=== PATIENT | male | born 1950 | race African-American/Black ===

== ENCOUNTER 2022-01-01 08:13 | Emergency (ER) | payer MEDICARE, MEDICAID ==
[~2022-01-01] VITALS: Ht 175.3 cm; Wt 78.0 kg
[2022-01-01] MEDS ORDERED: ALBUTEROL (0.083%) 2.5MG/3ML NEB HHN STA (08:22)
[2022-01-01] MEDS ORDERED: METHYLPREDNISOLONE SOD SUCC 125 MG/2 ML VIAL IV STA (08:22)
[2022-01-01] MEDS ORDERED: IPRATROPIUM BROMIDE (0.02%) 0.5MG/2.5ML NEB HHN STA (08:22)
[2022-01-01] MEDS ORDERED: NITROGLYCERIN 0.1MG/HR PATCH TOP ONE (08:30)
[2022-01-01 08:49] LABS: BASOPHILS % 1.4 % (0.0-2.0); EOSINOPHILS % 1.3 % (0.0-5.0); HEMATOCRIT. 39.7 % (42.0-52.0); HEMOGLOBIN. 12.8 g/dL (14.0-18.0); LYMPHOCYTES % 37.4 % (20.0-50.0); MEAN CORPUSCULAR HEMOGLOBIN 32.3 pg (28.0-32.0); MEAN CORPUSCULAR VOLUME 100.1 fL (80.0-94.0); MEAN PLATELET VOLUME 10.2 fl (7.4-10.4); MONOCYTES % 8.1 % (2.0-8.0); NEUTROPHILS % 51.8 % (40.0-76.0); PLATELET 209 x1000/uL (130-400); RED BLOOD CELL COUNT 3.97 mill/uL (4.7-6.1); RED CELL DISTRIBUTION WIDTH 13.3 % (11.6-14.6)
[2022-01-01 09:01] LABS: BG BASE EXCESS -3.2 mmol/L (-2.0-2.0); BG DEOXYHEMOGLOBIN 0.5 % (0.0-5.0); BG METHEMOGLOBIN 0.3 % (0.0-1.5); BG OXYGEN SATURATION 99.5 % (92.0-98.5); BG OXYHEMOGLOBIN 97.2 % (94.0-97.0); BG PCO2 59.4 mmHg (35.0-45.0); BG PH 7.242 (7.350-7.450); BG SAMPLE SITE RIGHT RADIAL; BG TOTAL HEMOGLOBIN 12.9 g/dL (12.0-18.0); BG VENT MODE MASK - BIPAP
[2022-01-01 09:05] LABS: CHLORIDE 107 mEq/L (98-107)
[2022-01-01] MEDS ORDERED: CEFTRIAXONE 1 G PREMIX 50 ML IV ONE (09:45)
[2022-01-01] MEDS ORDERED: ASPIRIN 81MG TABLET PO ONE (09:45)
[2022-01-01] MEDS ORDERED: FUROSEMIDE 40MG/4ML VIAL IV ONE (09:45)
[2022-01-01] MEDS ORDERED: NITROGLYCERIN 50MG PREMIX 250 ML IV ONE (09:45)
[2022-01-01] MEDS ORDERED: NITROGLYCERIN 50MG PREMIX 250 ML IV NR (10:00)
[2022-01-01] MEDS ORDERED: CLONIDINE 0.2MG TABLET PO NR (16:15)
[2022-01-01 17:51] VITALS: BP 167/62
[2022-01-01] MEDS ORDERED: ACETAMINOPHEN 325MG TABLET PO PRN (21:15)
[2022-01-01] MEDS ORDERED: MAGNESIUM/ALUMINUM HYDROXIDE/SIMETHICONE 30ML UDC PO PRN (21:15)
[2022-01-01] MEDS ORDERED: ONDANSETRON HCL 4MG/2ML INJ IV PRN (21:15)
[2022-01-01] MEDS ORDERED: CLONIDINE 0.1MG TABLET PO PRN (21:15)
[2022-01-01] MEDS ORDERED: AMLODIPINE 5MG TABLET PO NR (21:15)
[2022-01-01] MEDS ORDERED: HYDROCODONE/ACETAMINOPHEN 5/325MG TABLET PO PRN (21:15)
[2022-01-01] MEDS ORDERED: ENOXAPARIN 30MG/0.3ML SYR SUBCUT SCH (22:00)
[2022-01-01 22:14] LABS: *AMPHETAMINES SCREEN URINE NEGATIVE (NEGATIVE); *BARBITURATES SCREEN URINE NEGATIVE (NEGATIVE); *BENZODIAZEPINES SCREEN URINE NEGATIVE (NEGATIVE); *COCAINE SCREEN URINE PRESUMTIVE POSITIVE (NEGATIVE); CANNABINOID URINE SCREEN NEGATIVE (NEGATIVE); METHADONE URINE SCREEN NEGATIVE (NEGATIVE); OPIATES URINE SCREEN NEGATIVE (NEGATIVE); PHENCYCLIDINE URINE SCREEN NEGATIVE (NEGATIVE)
[2022-01-02] MEDS ORDERED: OMEPRAZOLE 20MG CAPSULE EXTENDED RELEASE PO SCH (07:50)
[2022-01-02] MEDS ORDERED: FUROSEMIDE 40MG/4ML VIAL IVP SCH (09:00)
[2022-01-02] MEDS ORDERED: AMLODIPINE 5MG TABLET PO SCH (09:00)
== END 2022-01-01 21:45 | disposition left against medical advice (07) ==
LOC: ER 08:27 → EDBEDREQSVC 18:39 → ENRESERV 19:58 → ER 21:45 → CANBEDREQ 23:19
DX: I16.1 Hypertensive emergency (principal); I13.0 Hypertensive heart and chronic kidney disease with heart failure and stage 1 through stage 4 chronic kidney disease, or unspecified chronic kidney disease; R06.03 Acute respiratory distress; I50.43 Acute on chronic combined systolic (congestive) and diastolic (congestive) heart failure; R00.0 Tachycardia, unspecified; N18.9 Chronic kidney disease, unspecified; Z20.822 Contact with and (suspected) exposure to COVID-19; J44.9 Chronic obstructive pulmonary disease, unspecified; D64.9 Anemia, unspecified; M41.84 Other forms of scoliosis, thoracic region
CPT/HCPCS: 36415; 36600; 71045; 80053; 80305; 82375; 82805; 83880; 84484; 85025; 87426; 93005; 94640; 94660; 96365; 96375; 99285; C9803; J0696; J1940; J2930; J3490

== ENCOUNTER 2022-01-13 00:10 | Inpatient (IN) | payer MEDICARE, MEDICAID ==
[~2022-01-13] VITALS: Ht 170.2 cm; Wt 54.1 kg
[2022-01-13] MEDS ORDERED: IPRATROPIUM BROMIDE (0.02%) 0.5MG/2.5ML NEB HHN STA (00:21)
[2022-01-13] MEDS ORDERED: METHYLPREDNISOLONE SOD SUCC 125 MG/2 ML VIAL IV STA (00:21)
[2022-01-13] MEDS ORDERED: ALBUTEROL (0.083%) 2.5MG/3ML NEB HHN STA (00:21)
[2022-01-13] MEDS ORDERED: MAGNESIUM 2 G PREMIX 50 ML IV ONE (00:30)
[2022-01-13 00:50] LABS: BG BASE EXCESS -5.9 mmol/L (-2.0-2.0); BG CARBOXYHEMOGLOBIN 1.3 % (0.5-1.5); BG DEOXYHEMOGLOBIN 2.6 % (0.0-5.0); BG FRACTION INSPIRED OXYGEN 60; BG HCO3 ACT 23.3 mmol/L (22.0-26.0); BG METHEMOGLOBIN 0.4 % (0.0-1.5); BG OXYGEN SATURATION 97.4 % (92.0-98.5); BG OXYHEMOGLOBIN 95.7 % (94.0-97.0); BG PCO2 61.8 mmHg (35.0-45.0); BG PH 7.195 (7.350-7.450); BG SAMPLE SITE RIGHT RADIAL; BG TOTAL HEMOGLOBIN 15.6 g/dL (12.0-18.0); BG VENT MODE MASK - BIPAP
[2022-01-13 02:39] LABS: BASOPHILS % 1.3 % (0.0-2.0); EOSINOPHILS % 0.9 % (0.0-5.0); HEMATOCRIT. 38.8 % (42.0-52.0); HEMOGLOBIN. 12.6 g/dL (14.0-18.0); LYMPHOCYTES % 22.9 % (20.0-50.0); MEAN CORPUSCULAR HEMOGLOBIN 32.5 pg (28.0-32.0); MEAN CORPUSCULAR VOLUME 99.6 fL (80.0-94.0); MEAN PLATELET VOLUME 10.3 fl (7.4-10.4); MONOCYTES % 5.1 % (2.0-8.0); NEUTROPHILS % 69.8 % (40.0-76.0); PLATELET 220 x1000/uL (130-400); RED BLOOD CELL COUNT 3.89 mill/uL (4.7-6.1); RED CELL DISTRIBUTION WIDTH 13.5 % (11.6-14.6)
[2022-01-13 02:44] LABS: CHLORIDE 109 mEq/L (98-107)
[2022-01-13] MEDS ORDERED: IPRATROPIUM/ALBUTEROL 0.5-3(2.5)MG/3ML NEB HHN PRN ×2 (06:30→09:45)
[2022-01-13] MEDS: BUDESONIDE 0.5MG/2ML NEB HHN SCH ×2 (07:36→20:07)
[2022-01-13] MEDS: IPRATROPIUM/ALBUTEROL 0.5-3(2.5)MG/3ML NEB HHN SCH ×4 (07:36→20:07)
[2022-01-13 09:11] LABS: BG BASE EXCESS -3.5 mmol/L (-2.0-2.0); BG CARBOXYHEMOGLOBIN 1.4 % (0.5-1.5); BG DEOXYHEMOGLOBIN 0.7 % (0.0-5.0); BG FRACTION INSPIRED OXYGEN 40; BG METHEMOGLOBIN 0.3 % (0.0-1.5); BG OXYGEN SATURATION 99.3 % (92.0-98.5); BG OXYHEMOGLOBIN 97.6 % (94.0-97.0); BG PCO2 47.4 mmHg (35.0-45.0); BG PH 7.304 (7.350-7.450); BG PO2 137.1 mmHg (75.0-100.0); BG SAMPLE SITE RIGHT BRACHIAL; BG TOTAL HEMOGLOBIN 12.4 g/dL (12.0-18.0); BG TOTAL RESPIRATORY RATE 32 b/min; BG VENT MODE MASK - BIPAP
[2022-01-13] MEDS ORDERED: MAGNESIUM/ALUMINUM HYDROXIDE/SIMETHICONE 30ML UDC PO PRN (09:45)
[2022-01-13] MEDS ORDERED: TRAMADOL 50MG TABLET PO PRN (09:45)
[2022-01-13] MEDS ORDERED: DOCUSATE SODIUM 100MG CAPSULE PO PRN (09:45)
[2022-01-13] MEDS ORDERED: ENOXAPARIN 40MG/0.4ML SYR SUBCUT SCH (09:45)
[2022-01-13] MEDS ORDERED: ONDANSETRON HCL 4MG/2ML INJ IV PRN (09:45)
[2022-01-13] MEDS ORDERED: ACETAMINOPHEN 325MG TABLET PO PRN (09:45)
[2022-01-13] MEDS ORDERED: GUAIFENESIN 200MG/10ML SUGAR FREE UDC PO PRN (09:45)
[2022-01-13] MEDS ORDERED: NALOXONE HCL 0.4MG/ML VIAL IV PRN (10:00)
[2022-01-13] MEDS: METHYLPREDNISOLONE SOD SUCC 125 MG/2 ML VIAL IV SCH ×3 (10:28→21:36)
[2022-01-13] MEDS ORDERED: PIPERACILLIN/TAZOBACTAM 3.375 G in DEXTROSE 5% WATER 50 ML IV SCH (10:30)
[2022-01-13] MEDS: AMLODIPINE 10MG TABLET PO SCH (10:31)
[2022-01-13] MEDS: ENOXAPARIN 30MG/0.3ML SYR SUBCUT SCH (10:32)
[2022-01-13 13:05] VITALS: BP 149/100
[2022-01-13] MEDS ORDERED: HYDRALAZINE 20MG/ML VIAL IV PRN (13:45)
[2022-01-13] MEDS ORDERED: HYDRALAZINE HCL 25MG TABLET PO SCH (14:00)
[2022-01-13] MEDS: TAMSULOSIN HCL 0.4MG SR CAPSULE PO SCH (15:17)
[2022-01-13] MEDS: ISOSORBIDE DINITRATE 20MG TABLET PO SCH ×2 (15:17→17:29)
[2022-01-13] MEDS: HYDRALAZINE HCL 100MG TABLET PO SCH ×2 (15:17→21:39)
[2022-01-13] MEDS: PIPERACILLIN/TAZOBACTAM 3.375 G in DEXTROSE 5% WATER 50 ML IV SCH ×2 (15:18→21:37)
[2022-01-13 16:00] VITALS: BP 167/61
[2022-01-13 16:13] VITALS: BP 141/100
[2022-01-13] MEDS ORDERED: HYDR-4009 MT (16:40)
[2022-01-13] MEDS ORDERED: LISI20TA31 MT (16:40)
[2022-01-13 18:00] VITALS: BP 142/67
[2022-01-13 20:00] VITALS: BP 137/78
[2022-01-13 22:00] VITALS: BP 153/79
[2022-01-14] VITALS (12 sets, daily range): BP systolic 119–151; BP diastolic 56–80
[2022-01-14] MEDS: IPRATROPIUM/ALBUTEROL 0.5-3(2.5)MG/3ML NEB HHN SCH ×6 (00:50→20:12)
[2022-01-14] MEDS: METHYLPREDNISOLONE SOD SUCC 125 MG/2 ML VIAL IV SCH ×2 (05:17→11:06)
[2022-01-14] MEDS: PIPERACILLIN/TAZOBACTAM 3.375 G in DEXTROSE 5% WATER 50 ML IV SCH ×3 (05:18→21:37)
[2022-01-14] MEDS: HYDRALAZINE HCL 100MG TABLET PO SCH ×3 (05:18→21:49)
[2022-01-14 06:09] LABS: HEMATOCRIT. 31.6 % (42.0-52.0); HEMOGLOBIN. 10.5 g/dL (14.0-18.0); MEAN CORPUSCULAR HEMOGLOBIN 32.3 pg (28.0-32.0); MEAN CORPUSCULAR VOLUME 96.9 fL (80.0-94.0); MEAN PLATELET VOLUME 9.7 fl (7.4-10.4); PLATELET 181 x1000/uL (130-400); RED BLOOD CELL COUNT 3.26 mill/uL (4.7-6.1); RED CELL DISTRIBUTION WIDTH 12.9 % (11.6-14.6)
[2022-01-14 08:37] LABS: BG BASE EXCESS -4.2 mmol/L (-2.0-2.0); BG CARBOXYHEMOGLOBIN 0.3 % (0.5-1.5); BG DEOXYHEMOGLOBIN 6.2 % (0.0-5.0); BG FRACTION INSPIRED OXYGEN 21; BG HCO3 ACT 20.2 mmol/L (22.0-26.0); BG METHEMOGLOBIN 0.1 % (0.0-1.5); BG OXYGEN SATURATION 93.8 % (92.0-98.5); BG OXYHEMOGLOBIN 93.4 % (94.0-97.0); BG PCO2 34.8 mmHg (35.0-45.0); BG PH 7.382 (7.350-7.450); BG PO2 67.8 mmHg (75.0-100.0); BG SAMPLE SITE RIGHT RADIAL; BG TOTAL HEMOGLOBIN 12.1 g/dL (12.0-18.0); BG VENT MODE ROOM AIR
[2022-01-14] MEDS: BUDESONIDE 0.5MG/2ML NEB HHN SCH ×2 (09:15→20:12)
[2022-01-14 10:25] LABS: CHLORIDE 108 mEq/L (98-107); HDL CHOLESTEROL 91 mg/dL (40-59); LDL CHOLESTEROL 80 mg/dL (5-100)
[2022-01-14] MEDS: TAMSULOSIN HCL 0.4MG SR CAPSULE PO SCH (10:50)
[2022-01-14] MEDS: GUAIFENESIN 600MG ER TABLET PO SCH ×2 (10:51→21:37)
[2022-01-14] MEDS: AMLODIPINE 10MG TABLET PO SCH (10:51)
[2022-01-14] MEDS: ENOXAPARIN 30MG/0.3ML SYR SUBCUT SCH (10:52)
[2022-01-14] MEDS: ISOSORBIDE DINITRATE 20MG TABLET PO SCH ×3 (11:06→18:45)
[2022-01-14] MEDS ORDERED: FUROSEMIDE 40MG/4ML VIAL IVP NR (12:00)
[2022-01-14 13:30] LABS: PLATELET ESTIMATE NORMAL
[2022-01-14] MEDS: METHYLPREDNISOLONE SOD SUCC 40 MG/ML VIAL IV SCH (18:46)
[2022-01-15] VITALS (7 sets, daily range): BP systolic 122–155; BP diastolic 48–82
[2022-01-15] MEDS: IPRATROPIUM/ALBUTEROL 0.5-3(2.5)MG/3ML NEB HHN SCH ×3 (00:56→08:30)
[2022-01-15] MEDS: METHYLPREDNISOLONE SOD SUCC 40 MG/ML VIAL IV SCH ×2 (01:12→09:25)
[2022-01-15] MEDS: PIPERACILLIN/TAZOBACTAM 3.375 G in DEXTROSE 5% WATER 50 ML IV SCH (05:59)
[2022-01-15] MEDS: HYDRALAZINE HCL 100MG TABLET PO SCH (05:59)
[2022-01-15] MEDS: BUDESONIDE 0.5MG/2ML NEB HHN SCH (08:30)
[2022-01-15] MEDS: ISOSORBIDE DINITRATE 20MG TABLET PO SCH (08:48)
[2022-01-15] MEDS: AMLODIPINE 10MG TABLET PO SCH (08:48)
[2022-01-15] MEDS: TAMSULOSIN HCL 0.4MG SR CAPSULE PO SCH (08:49)
[2022-01-15] MEDS: GUAIFENESIN 600MG ER TABLET PO SCH (08:49)
[2022-01-15] MEDS: ENOXAPARIN 30MG/0.3ML SYR SUBCUT SCH (09:26)
== END 2022-01-15 20:10 | disposition home health service (06) | DRG 189 ==
LOC: ER 00:10 → EDBEDREQ 03:27 → MICUSO 04:28 → 5EST 12:21
PROVIDERS: ADMIT Hospitalist; ATTEND Hospitalist
PROC: 5A09357 Assistance with Respiratory Ventilation, Less than 24 Consecutive Hours, Continuous Positive Airway Pressure (ICD-10-PCS; principal; 2022-01-13)
DX: J96.01 Acute respiratory failure with hypoxia (principal); I50.31 Acute diastolic (congestive) heart failure; J18.9 Pneumonia, unspecified organism; I21.A1 Myocardial infarction type 2; N17.9 Acute kidney failure, unspecified; E44.0 Moderate protein-calorie malnutrition; E87.29 Other acidosis; J68.0 Bronchitis and pneumonitis due to chemicals, gases, fumes and vapors; Z68.1 Body mass index [BMI] 19.9 or less, adult; I11.0 Hypertensive heart disease with heart failure; J96.02 Acute respiratory failure with hypercapnia; Z20.822 Contact with and (suspected) exposure to COVID-19; T40.5X1A Poisoning by cocaine, accidental (unintentional), initial encounter; I16.0 Hypertensive urgency; E87.5 Hyperkalemia; R77.8 Other specified abnormalities of plasma proteins; F17.210 Nicotine dependence, cigarettes, uncomplicated; F14.10 Cocaine abuse, uncomplicated; M41.9 Scoliosis, unspecified; Y92.89 Other specified places as the place of occurrence of the external cause
CPT/HCPCS: 36415; 36600; 71045; 80053; 80061; 82375; 82805; 83880; 84484; 85025; 87426; 87804; 93005; 93306; 94640; 94660; 99291; J1650; J1940; J2543; J2920; J2930; J3475; J7060; J7626

== ENCOUNTER 2022-05-18 07:52 | Inpatient (IN) | payer MEDICARE, MEDICAID ==
[~2022-05-18] VITALS: Ht 170.2 cm; Wt 53.5 kg
[~2022-05-18 07:52] MED LIST: HYDR-4009 MT; LISI20TA31 MT
[2022-05-18] MEDS ORDERED: IPRATROPIUM/ALBUTEROL 0.5-3(2.5)MG/3ML NEB HHN ONE (08:15)
[2022-05-18] MEDS ORDERED: ALBUTEROL (0.083%) 2.5MG/3ML NEB HHN STA (08:21)
[2022-05-18] MEDS ORDERED: MAGNESIUM 2 G PREMIX 50 ML IV STA (08:21)
[2022-05-18] MEDS ORDERED: IPRATROPIUM BROMIDE (0.02%) 0.5MG/2.5ML NEB HHN STA (08:21)
[2022-05-18 08:45] LABS: BG BASE EXCESS -7.2 mmol/L (-2.0-2.0); BG CARBOXYHEMOGLOBIN 0.3 % (0.5-1.5); BG DEOXYHEMOGLOBIN 1.1 % (0.0-5.0); BG FRACTION INSPIRED OXYGEN 100; BG HCO3 ACT 21.6 mmol/L (22.0-26.0); BG METHEMOGLOBIN 0.2 % (0.0-1.5); BG OXYGEN SATURATION 98.9 % (92.0-98.5); BG OXYHEMOGLOBIN 98.4 % (94.0-97.0); BG PCO2 58.3 mmHg (35.0-45.0); BG PH 7.186 (7.350-7.450); BG PO2 187.7 mmHg (75.0-100.0); BG SAMPLE SITE RIGHT RADIAL; BG TOTAL HEMOGLOBIN 12.4 g/dL (12.0-18.0); BG VENT MODE MASK - NRB
[2022-05-18] MEDS ORDERED: FUROSEMIDE 40MG/4ML VIAL IVP NR (08:45)
[2022-05-18] MEDS ORDERED: HYDRALAZINE 20MG/ML VIAL IV NR ×2 (08:46→09:45)
[2022-05-18] MEDS ORDERED: METHYLPREDNISOLONE SOD SUCC 125 MG/2 ML VIAL IV NR (08:46)
[2022-05-18 09:14] LABS: CHLORIDE 110 mEq/L (98-107)
[2022-05-18 09:17] LABS: BASOPHILS % 1.3 % (0.0-2.0); EOSINOPHILS % 0.8 % (0.0-5.0); HEMATOCRIT. 37.5 % (42.0-52.0); HEMOGLOBIN. 12.3 g/dL (14.0-18.0); MEAN CORPUSCULAR HEMOGLOBIN 31.6 pg (28.0-32.0); MEAN CORPUSCULAR VOLUME 96.5 fL (80.0-94.0); MEAN PLATELET VOLUME 10.9 fl (7.4-10.4); MONOCYTES % 4.5 % (2.0-8.0); NEUTROPHILS % 74.4 % (40.0-76.0); PLATELET 283 x1000/uL (130-400); RED BLOOD CELL COUNT 3.89 mill/uL (4.7-6.1); RED CELL DISTRIBUTION WIDTH 13.3 % (11.6-14.6)
[2022-05-18] MEDS ORDERED: ASPIRIN 81MG TABLET PO NR (09:45)
[2022-05-18] MEDS ORDERED: CEFTRIAXONE 1GM PREMIX 50 ML IV NR (09:45)
[2022-05-18] MEDS ORDERED: MAGNESIUM/ALUMINUM HYDROXIDE/SIMETHICONE 30ML UDC PO PRN (12:00)
[2022-05-18] MEDS ORDERED: ONDANSETRON HCL 4MG/2ML INJ IV PRN (12:00)
[2022-05-18] MEDS ORDERED: IPRATROPIUM/ALBUTEROL 0.5-3(2.5)MG/3ML NEB HHN PRN (12:00)
[2022-05-18] MEDS ORDERED: AZITHROMYCIN 500 MG in DEXT 5% WATER 250 ML IV NR (12:00)
[2022-05-18] MEDS ORDERED: AMLODIPINE 10MG TABLET PO SCH (12:00)
[2022-05-18] MEDS ORDERED: METHYLPREDNISOLONE SOD SUCC 125 MG/2 ML VIAL IV SCH (12:00)
[2022-05-18] MEDS ORDERED: DOCUSATE SODIUM 100MG CAPSULE PO PRN (12:00)
[2022-05-18] MEDS ORDERED: HYDROCODONE/ACETAMINOPHEN 10/325MG TABLET PO PRN (12:00)
[2022-05-18] MEDS ORDERED: ACETAMINOPHEN 325MG TABLET PO PRN ×2 (12:00)
[2022-05-18] MEDS ORDERED: LISINOPRIL 10MG TABLET PO SCH (12:00)
[2022-05-18] MEDS: ISOSORBIDE DINITRATE 10MG TABLET PO SCH (13:25)
[2022-05-18] MEDS: HYDRALAZINE HCL 50MG TABLET PO SCH ×2 (13:26→21:16)
[2022-05-18] MEDS ORDERED: SODIUM POLYSTYRENE SULFONATE 15 G/60 ML BOT PO NR (13:45)
[2022-05-18 14:12] LABS: BG BASE EXCESS -5.4 mmol/L (-2.0-2.0); BG CARBOXYHEMOGLOBIN 0.3 % (0.5-1.5); BG DEOXYHEMOGLOBIN 0.4 % (0.0-5.0); BG FRACTION INSPIRED OXYGEN 100; BG HCO3 ACT 19.2 mmol/L (22.0-26.0); BG METHEMOGLOBIN 0.1 % (0.0-1.5); BG OXYGEN SATURATION 99.6 % (92.0-98.5); BG OXYHEMOGLOBIN 99.2 % (94.0-97.0); BG PCO2 34.8 mmHg (35.0-45.0); BG PO2 457.8 mmHg (75.0-100.0); BG SAMPLE SITE LEFT BRACHIAL; BG TOTAL RESPIRATORY RATE 24 b/min; BG VENT MODE MASK - BIPAP
[2022-05-18] MEDS: AMLODIPINE 5MG TABLET PO SCH (14:33)
[2022-05-18] MEDS: METHYLPREDNISOLONE SOD SUCC 125 MG/2 ML VIAL IV SCH ×2 (15:03→20:14)
[2022-05-18] MEDS: IPRATROPIUM/ALBUTEROL 0.5-3(2.5)MG/3ML NEB HHN SCH ×2 (15:39→21:05)
[2022-05-18 17:09] VITALS: BP 169/61
[2022-05-18] MEDS ORDERED: DEXTROSE 50% WATER 50ML SYRINGE IV PRN (19:45)
[2022-05-18 20:00] VITALS: BP 171/76
[2022-05-18] MEDS: GUAIFENESIN 200MG/10ML SUGAR FREE UDC PO PRN (20:13)
[2022-05-18] MEDS: CLONIDINE 0.1MG TABLET PO PRN (20:14)
[2022-05-18] MEDS: FAMOTIDINE 20MG TABLET PO SCH (20:14)
[2022-05-18] MEDS: ENOXAPARIN 30MG/0.3ML SYR SUBCUT SCH (21:16)
[2022-05-18 21:55] LABS: TOTAL IRON BINDING CAPACITY 415 ug/dL (250-450)
[2022-05-18 22:00] VITALS: BP 131/68
[2022-05-18 22:21] LABS: FOLIC ACID (FOLATE) SERUM 14.8 ng/mL (>5.38)
[2022-05-19] VITALS (9 sets, daily range): BP systolic 120–164; BP diastolic 58–89
[2022-05-19 01:56] LABS: CREATINE KINASE MB FRACTION 9.5 ng/mL (0.5-3.6)
[2022-05-19] MEDS: IPRATROPIUM/ALBUTEROL 0.5-3(2.5)MG/3ML NEB HHN SCH ×3 (02:34→15:20)
[2022-05-19] MEDS: METHYLPREDNISOLONE SOD SUCC 125 MG/2 ML VIAL IV SCH ×3 (02:37→20:47)
[2022-05-19] MEDS: CLONIDINE 0.1MG TABLET PO PRN (05:00)
[2022-05-19] MEDS: GUAIFENESIN 200MG/10ML SUGAR FREE UDC PO PRN (05:00)
[2022-05-19] MEDS: HYDRALAZINE HCL 50MG TABLET PO SCH ×3 (05:00→20:47)
[2022-05-19 07:19] LABS: HEMATOCRIT. 30.8 % (42.0-52.0); HEMOGLOBIN. 10.3 g/dL (14.0-18.0); MEAN CORPUSCULAR HEMOGLOBIN 31.9 pg (28.0-32.0); MEAN CORPUSCULAR VOLUME 94.9 fL (80.0-94.0); MEAN PLATELET VOLUME 9.2 fl (7.4-10.4); PLATELET 223 x1000/uL (130-400); RED BLOOD CELL COUNT 3.25 mill/uL (4.7-6.1); RED CELL DISTRIBUTION WIDTH 13.1 % (11.6-14.6)
[2022-05-19 08:30] LABS: CHLORIDE 111 mEq/L (98-107)
[2022-05-19 08:36] LABS: BG BASE EXCESS -3.9 mmol/L (-2.0-2.0); BG CARBOXYHEMOGLOBIN 0.1 % (0.5-1.5); BG DEOXYHEMOGLOBIN 6.3 % (0.0-5.0); BG FRACTION INSPIRED OXYGEN 21; BG HCO3 ACT 20.3 mmol/L (22.0-26.0); BG METHEMOGLOBIN 0.1 % (0.0-1.5); BG OXYGEN SATURATION 93.7 % (92.0-98.5); BG OXYHEMOGLOBIN 93.5 % (94.0-97.0); BG PCO2 33.7 mmHg (35.0-45.0); BG PH 7.397 (7.350-7.450); BG PO2 68.3 mmHg (75.0-100.0); BG SAMPLE SITE RIGHT RADIAL; BG TOTAL HEMOGLOBIN 11.7 g/dL (12.0-18.0); BG VENT MODE ROOM AIR
[2022-05-19] MEDS: ASPIRIN 81MG EC TABLET PO SCH (08:42)
[2022-05-19] MEDS: TAMSULOSIN HCL 0.4MG SR CAPSULE PO SCH (08:42)
[2022-05-19] MEDS: AMLODIPINE 5MG TABLET PO SCH (08:43)
[2022-05-19 08:50] LABS: CREATINE KINASE 126 IU/L (39-308); HDL CHOLESTEROL 66 mg/dL (40-59); LDL CHOLESTEROL 69 mg/dL (5-100); T4 FREE 0.98 ng/dL (0.76-1.46)
[2022-05-19] MEDS ORDERED: AMLODIPINE 5MG TABLET PO SCH (09:00)
[2022-05-19] MEDS: ISOSORBIDE DINITRATE 10MG TABLET PO SCH ×2 (09:15→14:06)
[2022-05-19] MEDS: FUROSEMIDE 40MG/4ML VIAL IV SCH (09:15)
[2022-05-19] MEDS ORDERED: CEFTRIAXONE 1GM PREMIX 50 ML IV SCH (10:00)
[2022-05-19] MEDS ORDERED: AZITHROMYCIN 500 MG in DEXT 5% WATER 250 ML IV SCH (12:00)
[2022-05-19] MEDS ORDERED: SODIUM CHLORIDE 0.45% 1,000 ML IV ONE (12:15)
[2022-05-19 14:14] LABS: PLATELET ESTIMATE NORMAL
[2022-05-19] MEDS ORDERED: IPRATROPIUM BROMIDE (0.02%) 0.5MG/2.5ML NEB HHN PRN (17:30)
[2022-05-19] MEDS ORDERED: ALBUTEROL (0.083%) 2.5MG/3ML NEB HHN PRN (17:30)
[2022-05-19] MEDS: ENOXAPARIN 30MG/0.3ML SYR SUBCUT SCH (18:00)
[2022-05-19] MEDS: FAMOTIDINE 20MG TABLET PO SCH (20:46)
[2022-05-19] MEDS: IPRATROPIUM BROMIDE (0.02%) 0.5MG/2.5ML NEB HHN SCH (20:56)
[2022-05-19] MEDS: ALBUTEROL (0.083%) 2.5MG/3ML NEB HHN SCH (20:57)
[2022-05-20] VITALS: BP 118/58
[2022-05-20] MEDS: IPRATROPIUM BROMIDE (0.02%) 0.5MG/2.5ML NEB HHN SCH ×2 (01:36→08:24)
[2022-05-20] MEDS: ALBUTEROL (0.083%) 2.5MG/3ML NEB HHN SCH ×2 (01:37→08:23)
[2022-05-20] MEDS: METHYLPREDNISOLONE SOD SUCC 125 MG/2 ML VIAL IV SCH ×2 (04:09→08:24)
[2022-05-20 04:15] VITALS: BP 135/43
[2022-05-20] MEDS: HYDRALAZINE HCL 50MG TABLET PO SCH (04:41)
[2022-05-20 06:11] LABS: HEMOGLOBIN. 9.9 g/dL (14.0-18.0); MEAN CORPUSCULAR HEMOGLOBIN 32.5 pg (28.0-32.0); MEAN CORPUSCULAR VOLUME 94.8 fL (80.0-94.0); MEAN PLATELET VOLUME 9.6 fl (7.4-10.4); PLATELET 221 x1000/uL (130-400); RED BLOOD CELL COUNT 3.06 mill/uL (4.7-6.1); RED CELL DISTRIBUTION WIDTH 13.1 % (11.6-14.6)
[2022-05-20 08:00] VITALS: BP 146/61
[2022-05-20] MEDS: ASPIRIN 81MG EC TABLET PO SCH (08:22)
[2022-05-20] MEDS: ISOSORBIDE DINITRATE 10MG TABLET PO SCH ×2 (08:23→13:00)
[2022-05-20] MEDS: AMLODIPINE 5MG TABLET PO SCH (08:23)
[2022-05-20] MEDS: TAMSULOSIN HCL 0.4MG SR CAPSULE PO SCH (08:23)
[2022-05-20] MEDS: FUROSEMIDE 40MG/4ML VIAL IV SCH (08:24)
[2022-05-20] MEDS ORDERED: SODIUM CHLORIDE 0.9% 1,000 ML IV SCH (08:30)
[2022-05-20 09:02] LABS: CHLORIDE 106 mEq/L (98-107)
[2022-05-20 09:26] LABS: BG BASE EXCESS -5.6 mmol/L (-2.0-2.0); BG CARBOXYHEMOGLOBIN 0.3 % (0.5-1.5); BG DEOXYHEMOGLOBIN 6.1 % (0.0-5.0); BG FRACTION INSPIRED OXYGEN 21; BG HCO3 ACT 19.4 mmol/L (22.0-26.0); BG METHEMOGLOBIN 0.3 % (0.0-1.5); BG OXYGEN SATURATION 93.9 % (92.0-98.5); BG OXYHEMOGLOBIN 93.3 % (94.0-97.0); BG PCO2 36.3 mmHg (35.0-45.0); BG PH 7.346 (7.350-7.450); BG PO2 72.8 mmHg (75.0-100.0); BG SAMPLE SITE RIGHT BRACHIAL; BG TOTAL HEMOGLOBIN 11.8 g/dL (12.0-18.0); BG VENT MODE ROOM AIR
[2022-05-20] MEDS ORDERED: SODIUM POLYSTYRENE SULFONATE 15 G/60 ML BOT PO NR (10:00)
[2022-05-20 10:36] LABS: PLATELET ESTIMATE NORMAL
[2022-05-20] MEDS ORDERED: CEFTRIAXONE 1GM PREMIX 50 ML IV SCH (12:00)
[2022-05-20 12:45] VITALS: BP 146/61
[2022-05-20] MEDS ORDERED: AZITHROMYCIN 500 MG in DEXT 5% WATER 250 ML IV SCH (14:00)
[2022-05-20 14:07] LABS: CLARITY URINE CLEAR (CLEAR); COLOR URINE YELLOW (YELLOW); KETONES URINE NEGATIVE (NEGATIVE); LEUKOCYTE ESTERASE URINE NEGATIVE (NEGATIVE); NITRITE URINE NEGATIVE (NEGATIVE); OCCULT BLOOD URINE NEGATIVE (NEGATIVE); PROTEIN URINE 3+ (NEGATIVE); SPECIFIC GRAVITY URINE 1.013 (1.005-1.030); UROBILINOGEN URINE 0.2 E.U./dL (0.2-1.0)
[2022-05-20] MEDS ORDERED: METHYLPREDNISOLONE SOD SUCC 40 MG/ML VIAL IV SCH (15:00)
== END 2022-05-20 13:05 | disposition home health service (06) | DRG 189 ==
LOC: ER 08:09 → MICUNO 10:23 → EDBEDREQ 10:40 → EDBEDREQSVC 10:41 → EDBEDREQ 10:41 → EDBEDREQTM 10:41 → 7EST 05-19 17:12
PROVIDERS: ADMIT Hospitalist; ATTEND Hospitalist
PROC: 5A09357 Assistance with Respiratory Ventilation, Less than 24 Consecutive Hours, Continuous Positive Airway Pressure (ICD-10-PCS; principal; 2022-05-18)
DX: J96.01 Acute respiratory failure with hypoxia (principal); I50.33 Acute on chronic diastolic (congestive) heart failure; J69.0 Pneumonitis due to inhalation of food and vomit; I13.0 Hypertensive heart and chronic kidney disease with heart failure and stage 1 through stage 4 chronic kidney disease, or unspecified chronic kidney disease; J44.1 Chronic obstructive pulmonary disease with (acute) exacerbation; N17.9 Acute kidney failure, unspecified; I16.1 Hypertensive emergency; E44.0 Moderate protein-calorie malnutrition; E87.29 Other acidosis; J44.0 Chronic obstructive pulmonary disease with (acute) lower respiratory infection; E46 Unspecified protein-calorie malnutrition; J96.02 Acute respiratory failure with hypercapnia; I16.0 Hypertensive urgency; N18.9 Chronic kidney disease, unspecified; I27.20 Pulmonary hypertension, unspecified; F17.210 Nicotine dependence, cigarettes, uncomplicated; N40.0 Benign prostatic hyperplasia without lower urinary tract symptoms; E87.5 Hyperkalemia; D53.9 Nutritional anemia, unspecified; R73.9 Hyperglycemia, unspecified; G89.29 Other chronic pain; M47.26 Other spondylosis with radiculopathy, lumbar region; M51.16 Intervertebral disc disorders with radiculopathy, lumbar region; Z79.899 Other long term (current) drug therapy; Z68.21 Body mass index [BMI] 21.0-21.9, adult; Z91.14 Patient's other noncompliance with medication regimen
CPT/HCPCS: 36415; 36600; 71045; 76770; 78580; 80053; 80061; 81003; 82375; 82550; 82553; 82607; 82746; 82805; 82962; 83036; 83540; 83550; 83880; 84145; 84439; 84443; 84484; 85025; 85379; 93005; 93306; 93970; 94640; 97162; 97165; 99291; J0360; J0456; J0696; J1650; J1940; J2930; J3475; J7030; J7060

== ENCOUNTER 2022-06-09 22:41 | Emergency (ER) | payer MEDICARE, MEDICAID ==
[~2022-06-09] VITALS: Ht 167.6 cm; Wt 60.0 kg
[2022-06-09 22:48] VITALS: BP 146/126
== END 2022-06-10 | disposition left against medical advice (07) ==
LOC: ER 22:41
DX: R06.02 Shortness of breath (principal); Z53.21 Procedure and treatment not carried out due to patient leaving prior to being seen by health care provider
CPT/HCPCS: 71045; 76870; 80053; 83880; 84484; 93005; 93976; 99281

== ENCOUNTER 2022-06-10 17:52 | Emergency (ER) | payer MEDICARE, MEDICAID ==
[~2022-06-10] VITALS: Ht 170.2 cm; Wt 59.4 kg
[2022-06-10 18:03] VITALS: BP 171/69
== END 2022-06-10 20:57 | disposition left against medical advice (07) ==
LOC: ER 17:52
DX: Z53.21 Procedure and treatment not carried out due to patient leaving prior to being seen by health care provider (principal)

== ENCOUNTER 2023-10-11 06:33 | Inpatient (IN) | payer MEDICARE, MEDICAID ==
[2023-10-11] VITALS (58 sets, daily range): BP systolic 118–163; BP diastolic 53–94; PULSE 42–77; RESP 9–20; TEMP 32.2248–36.33624; O2SAT 97–100
[~2023-10-11] VITALS: Ht 170.2 cm; Wt 53.6 kg
[~2023-10-11 06:33] MED LIST changes: +AMLO10TA80 PO; +ETOMIDATE 2MG/ML 10ML VIAL IV ONE; -HYDR-4009 MT; +HYDR25TA78 PO; -LISI20TA31 MT; +SULF1TAB48 MT; +TAMS-11 PO
[2023-10-11] MEDS: PIPERACILLIN/TAZO 3.375G/50ML 50 ML IV ONE (07:54)
[2023-10-11 08:08] LABS: CHLORIDE 106 mEq/L (98-107); POTASSIUM 5.2 mEq/L (3.5-5.1); SODIUM 137 mEq/L (136-145)
[2023-10-11 08:09] LABS: CALCIUM 7.6 mg/dL (8.7-10.4); CARBON DIOXIDE 23 mEq/L (21-32)
[2023-10-11 08:12] LABS: HEMATOCRIT. 28.7 % (42.0-52.0); HEMOGLOBIN. 8.8 g/dL (14.0-18.0); MEAN CORPUSCULAR HEMOGLOBIN 31.2 pg (28.0-32.0); MEAN CORPUSCULAR HGB CONC 30.8 g/dL (31.0-37.0); MEAN CORPUSCULAR VOLUME 101.2 fL (80.0-94.0); RED BLOOD CELL COUNT 2.83 mill/uL (4.7-6.1); RED CELL DISTRIBUTION WIDTH 15.1 % (11.6-14.6); WHITE BLOOD COUNT 2.2 x1000/uL (4.5-11.0)
[2023-10-11 08:14] LABS: GLUCOSE 132 mg/dL (70-105); UREA NITROGEN BLOOD 100 mg/dL (9-23)
[2023-10-11 08:16] LABS: ALANINE AMINOTRANSFERASE 90 IU/L (10-49); ALBUMIN 2.8 g/dL (3.2-4.8); ASPARTATE AMINOTRANSFERASE 132 IU/L (<34)
[2023-10-11 08:17] LABS: BILIRUBIN TOTAL < 0.2 mg/dL (0.1-1.0); PROTEIN TOTAL 4.6 g/dL (6.0-8.3)
[2023-10-11 08:18] LABS: BILIRUBIN DIRECT < 0.1 mg/dL (<=3.0)
[2023-10-11 08:21] LABS: CREATININE 5.4 mg/dL (0.6-1.3)
[2023-10-11 08:22] LABS: TROPONIN I HIGH SENSITIVITY 74 ng/L (3.0-53)
[2023-10-11 08:27] LABS: PROTHROMBIN TIME 11.5 sec (9.6-11.0)
[2023-10-11 08:29] LABS: DIFFERENTIAL COMMENT 1
[2023-10-11] MEDS: VANCOMYCIN 1G PREMIX 200 ML IV ONE (08:32)
[2023-10-11] MEDS ORDERED: FENTANYL 2500MCG/250ML PMX 250 ML IV ONE (10:00)
[2023-10-11 10:06] LABS: CLARITY URINE CLEAR (CLEAR); COLOR URINE YELLOW (YELLOW); GLUCOSE URINE NEGATIVE (NEGATIVE); KETONES URINE NEGATIVE (NEGATIVE); LEUKOCYTE ESTERASE URINE TRACE (NEGATIVE); NITRITE URINE NEGATIVE (NEGATIVE); OCCULT BLOOD URINE 2+ (NEGATIVE); PH URINE 5.5 (4.5-8.0); PROTEIN URINE 3+ (NEGATIVE); SPECIFIC GRAVITY URINE 1.013 (1.005-1.030); UROBILINOGEN URINE 0.2 E.U./dL (0.2-1.0)
[2023-10-11 10:48] LABS: BG BASE EXCESS -2.6 mmol/L (-2.0-2.0); BG CARBOXYHEMOGLOBIN 0.3 % (0.5-1.5); BG DEOXYHEMOGLOBIN 3.6 % (0.0-5.0); BG FRACTION INSPIRED OXYGEN 100; BG HCO3 ACT 23.9 mmol/L (22.0-26.0); BG METHEMOGLOBIN 0.3 % (0.0-1.5); BG OXYGEN SATURATION 96.4 % (92.0-98.5); BG OXYHEMOGLOBIN 95.8 % (94.0-97.0); BG PCO2 49.9 mmHg (35.0-45.0); BG PH 7.299 (7.350-7.450); BG SAMPLE SITE RIGHT RADIAL; BG VENT MODE VENT - AC/VC
[2023-10-11 10:50] LABS: SQUAMOUS EPITHELIAL CELL URINE NONE SEEN /lpf (RARE/1+)
[2023-10-11 10:51] LABS: BACTERIA URINE TRACE; MUCUS URINE TRACE /lpf (NONE/TRACE)
[2023-10-11] MEDS: FENTANYL CITRATE 2,500 MCG in SODIUM CHLORIDE 0.9% 200 ML IV PRN (11:11)
[2023-10-11 12:04] LABS: MEAN PLATELET VOLUME 10.3 fl (7.4-10.4); PLATELET 58 x1000/uL (130-400)
[2023-10-11] MEDS ORDERED: DOCUSATE SODIUM 100MG CAPSULE PO PRN (12:30)
[2023-10-11] MEDS ORDERED: ACETAMINOPHEN 325MG TABLET PO PRN ×2 (12:30)
[2023-10-11] MEDS ORDERED: GUAIFENESIN 200MG/10ML SUGAR FREE UDC PO PRN (12:30)
[2023-10-11] MEDS ORDERED: ONDANSETRON HCL 4MG/2ML INJ IV PRN (12:30)
[2023-10-11] MEDS ORDERED: MAGNESIUM/ALUMINUM HYDROXIDE/SIMETHICONE 30ML UDC PO PRN (12:30)
[2023-10-11] MEDS: SODIUM ZIRCONIUM CYCLOSILICATE 10GM/PACKET PO NR (12:38)
[2023-10-11] MEDS: DEXT 5%/0.9% NACL 1,000 ML IV SCH ×2 (12:38→21:53)
[2023-10-11] MEDS ORDERED: ASPIRIN 325MG EC TABLET PO NR (13:00)
[2023-10-11] MEDS ORDERED: DEXT 5%/LACTATED RINGERS 1,000 ML IV SCH (13:30)
[2023-10-11] MEDS: VANCOMYCIN 750MG/150ML (BAXTER) IV NR (13:36)
[2023-10-11 13:42] LABS: *AMPHETAMINES SCREEN URINE NEGATIVE (NEGATIVE); *BARBITURATES SCREEN URINE NEGATIVE (NEGATIVE); *BENZODIAZEPINES SCREEN URINE NEGATIVE (NEGATIVE); *COCAINE SCREEN URINE PRESUMPTIVE POSITIVE (NEGATIVE); METHADONE URINE SCREEN NEGATIVE (NEGATIVE); OPIATES URINE SCREEN NEGATIVE (NEGATIVE); PHENCYCLIDINE URINE SCREEN NEGATIVE (NEGATIVE)
[2023-10-11 13:43] LABS: CANNABINOID URINE SCREEN NEGATIVE (NEGATIVE); ECSTASY MDMA SCREEN URINE NEGATIVE (NEGATIVE)
[2023-10-11] MEDS ORDERED: ASPIRIN 325MG TABLET NG NR (14:00)
[2023-10-11] MEDS ORDERED: ASPIRIN 325MG TABLET PO NR (14:00)
[2023-10-11 14:42] LABS: NUCLEATED RED BLOOD CELLS 5 /100 WBC; PLATELET ESTIMATE MARKEDLY DECREASED
[2023-10-11 14:43] LABS: ANISOCYTOSIS 1+
[2023-10-11] MEDS ORDERED: ATROPINE SULFATE 1MG/ML VIAL IV PRN (15:00)
[2023-10-11 15:12] LABS: IRON 81 ug/dL (65-175)
[2023-10-11 15:14] LABS: TOTAL IRON BINDING CAPACITY 192 ug/dl (250-425)
[2023-10-11 15:17] LABS: FERRITIN 160 ng/mL (22-322); T4 FREE 0.68 ng/dL (0.89-1.76)
[2023-10-11 15:18] LABS: FOLIC ACID (FOLATE) SERUM 5.35 ng/mL (>5.38); VITAMIN B12 SERUM 1154 pg/mL (211-911)
[2023-10-11] MEDS: CEFEPIME 1GM/50ML 50 ML IV SCH (15:22)
[2023-10-11] MEDS: DEXTROSE 50% WATER 50ML SYRINGE IV NR (15:22)
[2023-10-11] MEDS: INSULIN LISPRO 100 UNITS/ML SUBCUT NR (15:23)
[2023-10-11 15:35] LABS: PHOSPHORUS 8.6 mg/dL (2.5-4.9)
[2023-10-11] MEDS: NICOTINE 14MG PATCH TD SCH (16:17)
[2023-10-11] MEDS: CALCIUM GLUCONATE 1GM PREMIX 50 ML IV NR (16:17)
[2023-10-11 19:02] LABS: AMMONIA < 17 uMol/L (<32)
[2023-10-11 19:15] LABS: TROPONIN I HIGH SENSITIVITY 71 ng/L (3.0-53)
[2023-10-11] MEDS: TAMSULOSIN HCL 0.4MG SR CAPSULE PO SCH (20:13)
[2023-10-11] MEDS: FUROSEMIDE 100MG/10ML VIAL IVP SCH (20:13)
[2023-10-11] MEDS ORDERED: PIPERACILLIN/TAZO 3.375G/50ML 50 ML IV SCH (21:00)
[2023-10-11] MEDS ORDERED: LORAZEPAM 2MG/ML INJ ONE (21:05)
[2023-10-11] MEDS: DEXTROSE 50% WATER 50ML SYRINGE IV PRN (21:14)
[2023-10-11] MEDS: LORAZEPAM 2MG/ML INJ IV NR (21:14)
[2023-10-11] MEDS: BLOOD SUGAR DIAGNOSTIC STRIP TEST SCH (23:43)
[2023-10-11] MEDS: DEXT 10% WATER 1,000 ML IV SCH (23:44)
[2023-10-12] VITALS (109 sets, daily range): BP systolic 91–185; BP diastolic 36–86; PULSE 43–97; RESP 0–29; TEMP 33.11376–36.6696; O2SAT 94–100
[2023-10-12 02:12] LABS: TROPONIN I HIGH SENSITIVITY 97 ng/L (3.0-53)
[2023-10-12] MEDS: LEVOTHYROXINE SODIUM 100 MCG/ VIAL IV SCH (05:46)
[2023-10-12 05:47] LABS: CHLORIDE 106 mEq/L (98-107); POTASSIUM 4.4 mEq/L (3.5-5.1); SODIUM 139 mEq/L (136-145)
[2023-10-12 05:48] LABS: CARBON DIOXIDE 22 mEq/L (21-32)
[2023-10-12 05:49] LABS: CALCIUM 7.2 mg/dL (8.7-10.4)
[2023-10-12 05:53] LABS: GLUCOSE 89 mg/dL (70-105)
[2023-10-12 05:54] LABS: UREA NITROGEN BLOOD 91 mg/dL (9-23)
[2023-10-12 05:55] LABS: ALANINE AMINOTRANSFERASE 75 IU/L (10-49); ALBUMIN 2.5 g/dL (3.2-4.8); ASPARTATE AMINOTRANSFERASE 96 IU/L (<34)
[2023-10-12 05:56] LABS: BILIRUBIN TOTAL 0.3 mg/dL (0.1-1.0); PROTEIN TOTAL 4.1 g/dL (6.0-8.3)
[2023-10-12 05:59] LABS: TROPONIN I HIGH SENSITIVITY 101 ng/L (3.0-53)
[2023-10-12] MEDS: PANTOPRAZOLE 40MG DR TABLET PO SCH (06:36)
[2023-10-12 06:52] LABS: BASOPHILS % 0.1 % (0.0-2.0); EOSINOPHILS % 0.1 % (0.0-5.0); HEMATOCRIT. 25.8 % (42.0-52.0); HEMOGLOBIN. 8.6 g/dL (14.0-18.0); LYMPHOCYTES % 5.4 % (20.0-50.0); MEAN CORPUSCULAR HEMOGLOBIN 32.4 pg (28.0-32.0); MEAN CORPUSCULAR HGB CONC 33.4 g/dL (31.0-37.0); MEAN CORPUSCULAR VOLUME 97.2 fL (80.0-94.0); MEAN PLATELET VOLUME 10.9 fl (7.4-10.4); MONOCYTES % 5.6 % (2.0-8.0); NEUTROPHILS % 88.8 % (40.0-76.0); RED BLOOD CELL COUNT 2.66 mill/uL (4.7-6.1); RED CELL DISTRIBUTION WIDTH 14.6 % (11.6-14.6)
[2023-10-12 06:57] LABS: DIFFERENTIAL COMMENT 1
[2023-10-12 06:58] LABS: PLATELET 39 x1000/uL (130-400)
[2023-10-12 07:49] LABS: BG BASE EXCESS -2.1 mmol/L (-2.0-2.0); BG CARBOXYHEMOGLOBIN 0.3 % (0.5-1.5); BG DEOXYHEMOGLOBIN 3.4 % (0.0-5.0); BG FRACTION INSPIRED OXYGEN 40; BG HCO3 ACT 20.8 mmol/L (22.0-26.0); BG METHEMOGLOBIN 0.3 % (0.0-1.5); BG OXYGEN SATURATION 96.6 % (92.0-98.5); BG PCO2 28.6 mmHg (35.0-45.0); BG PH 7.479 (7.350-7.450); BG PO2 82.4 mmHg (75.0-100.0); BG SAMPLE SITE RIGHT RADIAL; BG TOTAL HEMOGLOBIN 8.9 g/dL (12.0-18.0); BG VENT MODE VENT - AC
[2023-10-12] MEDS ORDERED: HEPARIN 1000 UNITS/ML 10ML ONE (09:49)
[2023-10-12] MEDS ORDERED: LIDOCAINE HCL 1% 10 MG/ML 10ML VIAL ONE (09:50)
[2023-10-12 16:36] LABS: HEMATOCRIT. 24.4 % (42.0-52.0); MEAN CORPUSCULAR HEMOGLOBIN 31.9 pg (28.0-32.0); MEAN CORPUSCULAR HGB CONC 32.8 g/dL (31.0-37.0); MEAN CORPUSCULAR VOLUME 97.2 fL (80.0-94.0); PLATELET 80 x1000/uL (130-400); RED BLOOD CELL COUNT 2.51 mill/uL (4.7-6.1); RED CELL DISTRIBUTION WIDTH 14.7 % (11.6-14.6)
[2023-10-12 16:40] LABS: DIFFERENTIAL COMMENT 1
[2023-10-12 17:03] LABS: NUCLEATED RED BLOOD CELLS 5 /100 WBC; PLATELET ESTIMATE DECREASED
[2023-10-13] VITALS (92 sets, daily range): BP systolic 70–211; BP diastolic 27–124; PULSE 53–98; RESP 8–29; TEMP 35.0028–36.83628; O2SAT 96–100
[2023-10-13 05:46] LABS: CHLORIDE 103 mEq/L (98-107); POTASSIUM 4.1 mEq/L (3.5-5.1); SODIUM 135 mEq/L (136-145)
[2023-10-13 05:47] LABS: CALCIUM 7.5 mg/dL (8.7-10.4); CARBON DIOXIDE 22 mEq/L (21-32)
[2023-10-13 05:52] LABS: GLUCOSE 103 mg/dL (70-105); UREA NITROGEN BLOOD 96 mg/dL (9-23)
[2023-10-13 05:54] LABS: PHOSPHORUS 6.7 mg/dL (2.5-4.9)
[2023-10-13 06:11] LABS: CREATININE 5.3 mg/dL (0.6-1.3)
[2023-10-13] MEDS: MAGNESIUM 2 G PREMIX 50 ML IV NR (07:37)
[2023-10-13] MEDS: LANTHANUM CARBONATE 500MG CHEW TABLET PO SCH (07:37)
[2023-10-13 08:02] LABS: BG BASE EXCESS -3.4 mmol/L (-2.0-2.0); BG CARBOXYHEMOGLOBIN 0.2 % (0.5-1.5); BG FRACTION INSPIRED OXYGEN 40; BG HCO3 ACT 21.4 mmol/L (22.0-26.0); BG METHEMOGLOBIN 0.3 % (0.0-1.5); BG OXYHEMOGLOBIN 95.5 % (94.0-97.0); BG PCO2 37.5 mmHg (35.0-45.0); BG PH 7.375 (7.350-7.450); BG PO2 84.3 mmHg (75.0-100.0); BG SAMPLE SITE RIGHT RADIAL; BG TOTAL HEMOGLOBIN 8.7 g/dL (12.0-18.0); BG VENT MODE VENT - AC
[2023-10-13] MEDS: NOREPINEPHRINE 8MG/250ML PMX 250 ML IV PRN (12:32)
[2023-10-13 13:07] LABS: ACTH PLASMA 20 pg/mL (7.2-63.3); C-PEPTIDE 2.7 ng/mL (1.1-4.4); INSULIN 1.1 uIU/mL (2.6-24.9)
[2023-10-13 14:59] LABS: HEPATITIS B SURFACE ANTIGEN NEGATIVE (Negative)
[2023-10-13 15:20] LABS: HEPATITIS A AB IGM NEGATIVE (Negative); HEPATITIS B CORE AB IGM NEGATIVE (Negative)
[2023-10-13 15:21] LABS: HEPATITIS C AB REACTIVE (Pos) (Negative)
[2023-10-13] MEDS: BLOOD SUGAR DIAGNOSTIC STRIP TEST SCH (16:00)
[2023-10-14] VITALS (98 sets, daily range): BP systolic 62–158; BP diastolic 30–139; PULSE 58–99; RESP 0–38; TEMP 35.5584–37.11408; O2SAT 98–100
[2023-10-14 04:55] LABS: HEMATOCRIT. 23.6 % (42.0-52.0); HEMOGLOBIN. 7.8 g/dL (14.0-18.0); MEAN CORPUSCULAR HEMOGLOBIN 32.3 pg (28.0-32.0); MEAN CORPUSCULAR HGB CONC 33.1 g/dL (31.0-37.0); MEAN CORPUSCULAR VOLUME 97.7 fL (80.0-94.0); MEAN PLATELET VOLUME 10.7 fl (7.4-10.4); RED BLOOD CELL COUNT 2.42 mill/uL (4.7-6.1); RED CELL DISTRIBUTION WIDTH 14.4 % (11.6-14.6)
[2023-10-14 05:01] LABS: POTASSIUM 4.7 mEq/L (3.5-5.1)
[2023-10-14 05:03] LABS: CALCIUM 7.4 mg/dL (8.7-10.4)
[2023-10-14 05:59] LABS: DIFFERENTIAL COMMENT 1
[2023-10-14 07:15] LABS: CREATININE 6.1 mg/dL (0.6-1.3)
[2023-10-14 09:20] LABS: BG BASE EXCESS -1.9 mmol/L (-2.0-2.0); BG CARBOXYHEMOGLOBIN 0.9 % (0.5-1.5); BG DEOXYHEMOGLOBIN 1.9 % (0.0-5.0); BG FRACTION INSPIRED OXYGEN 40; BG HCO3 ACT 23.3 mmol/L (22.0-26.0); BG METHEMOGLOBIN 0.3 % (0.0-1.5); BG OXYGEN SATURATION 98.1 % (92.0-98.5); BG OXYHEMOGLOBIN 96.9 % (94.0-97.0); BG PCO2 41.6 mmHg (35.0-45.0); BG PH 7.366 (7.350-7.450); BG PO2 110.3 mmHg (75.0-100.0); BG SAMPLE SITE RIGHT RADIAL; BG TOTAL HEMOGLOBIN 6.6 g/dL (12.0-18.0); BG VENT MODE VENT - SIMV
[2023-10-14 10:31] LABS: PROTHROMBIN TIME 10.9 sec (9.6-11.0)
[2023-10-14 10:35] LABS: HEMATOCRIT 20.1 % (42.0-52.0); HEMOGLOBIN 6.4 g/dL (14.0-18.0)
[2023-10-14 10:51] LABS: NUCLEATED RED BLOOD CELLS 1 /100 WBC
[2023-10-14 10:52] LABS: PLATELET ESTIMATE MARKEDLY DECREASED
[2023-10-14 10:53] LABS: PLATELET 40 x1000/uL (130-400)
[2023-10-14 15:30] LABS: BG BASE EXCESS -4.7 mmol/L (-2.0-2.0); BG CARBOXYHEMOGLOBIN 0.6 % (0.5-1.5); BG DEOXYHEMOGLOBIN 1.5 % (0.0-5.0); BG FRACTION INSPIRED OXYGEN 40; BG HCO3 ACT 20.4 mmol/L (22.0-26.0); BG METHEMOGLOBIN 0.3 % (0.0-1.5); BG OXYGEN SATURATION 98.5 % (92.0-98.5); BG OXYHEMOGLOBIN 97.6 % (94.0-97.0); BG PCO2 37.8 mmHg (35.0-45.0); BG PH 7.351 (7.350-7.450); BG PO2 130.1 mmHg (75.0-100.0); BG SAMPLE SITE RIGHT RADIAL; BG TOTAL HEMOGLOBIN 8.7 g/dL (12.0-18.0); BG VENT MODE VENT - CPAP
[2023-10-14 16:25] LABS: HEMATOCRIT 25.7 % (42.0-52.0); HEMOGLOBIN 8.5 g/dL (14.0-18.0); MEAN CORPUSCULAR HEMOGLOBIN 30.3 pg (28.0-32.0); MEAN CORPUSCULAR HGB CONC 33.2 g/dL (31.0-37.0); MEAN CORPUSCULAR VOLUME 91.3 fL (80.0-94.0); RED BLOOD CELL COUNT 2.82 mill/uL (4.7-6.1); RED CELL DISTRIBUTION WIDTH 20.3 % (11.6-14.6); WHITE BLOOD COUNT 6.6 x1000/uL (4.5-11.0)
[2023-10-14 16:30] LABS: PROTHROMBIN TIME 10.7 sec (9.6-11.0)
[2023-10-14 16:43] LABS: PLATELET 29 x1000/uL (130-400)
[2023-10-14] MEDS: PANTOPRAZOLE SODIUM 40 MG/VIAL IV SCH (17:37)
[2023-10-14 17:54] LABS: HEMATOCRIT 24.2 % (42.0-52.0); MEAN CORPUSCULAR HGB CONC 33.1 g/dL (31.0-37.0); MEAN CORPUSCULAR VOLUME 90.9 fL (80.0-94.0); RED BLOOD CELL COUNT 2.66 mill/uL (4.7-6.1); RED CELL DISTRIBUTION WIDTH 20.4 % (11.6-14.6); WHITE BLOOD COUNT 6.3 x1000/uL (4.5-11.0)
[2023-10-14 17:56] LABS: PLATELET 29 x1000/uL (130-400)
[2023-10-15] VITALS (86 sets, daily range): BP systolic 57–196; BP diastolic 33–101; PULSE 49–84; RESP 8–22; TEMP 35.0028–36.6696; O2SAT 92–100
[2023-10-15 01:14] LABS: HEMOGLOBIN 7.1 g/dL (14.0-18.0); MEAN CORPUSCULAR HEMOGLOBIN 30.7 pg (28.0-32.0); MEAN CORPUSCULAR HGB CONC 33.9 g/dL (31.0-37.0); MEAN CORPUSCULAR VOLUME 90.6 fL (80.0-94.0); RED CELL DISTRIBUTION WIDTH 21.2 % (11.6-14.6); WHITE BLOOD COUNT 5.3 x1000/uL (4.5-11.0)
[2023-10-15 01:49] LABS: HEMATOCRIT 20.8 % (42.0-52.0)
[2023-10-15 01:50] LABS: PLATELET 38 x1000/uL (130-400)
[2023-10-15 04:26] LABS: MEAN CORPUSCULAR HEMOGLOBIN 30.5 pg (28.0-32.0); MEAN CORPUSCULAR HGB CONC 33.4 g/dL (31.0-37.0); MEAN CORPUSCULAR VOLUME 91.4 fL (80.0-94.0); MEAN PLATELET VOLUME 8.7 fl (7.4-10.4); RED BLOOD CELL COUNT 2.16 mill/uL (4.7-6.1); RED CELL DISTRIBUTION WIDTH 21.5 % (11.6-14.6)
[2023-10-15 04:32] LABS: CALCIUM 7.6 mg/dL (8.7-10.4); POTASSIUM 5.1 mEq/L (3.5-5.1)
[2023-10-15 05:33] LABS: HEMATOCRIT. 19.8 % (42.0-52.0); HEMOGLOBIN. 6.6 g/dL (14.0-18.0)
[2023-10-15 05:34] LABS: DIFFERENTIAL COMMENT 1
[2023-10-15] MEDS: PANTOPRAZOLE SODIUM 40 MG/VIAL IV SCH (08:41)
[2023-10-15 09:28] LABS: ALANINE AMINOTRANSFERASE 40 IU/L (10-49); ALBUMIN 2.4 g/dL (3.2-4.8); ASPARTATE AMINOTRANSFERASE 46 IU/L (<34); BILIRUBIN DIRECT 0.1 mg/dL (<=3.0); BILIRUBIN TOTAL 0.3 mg/dL (0.1-1.0)
[2023-10-15 09:29] LABS: PROTEIN TOTAL 4.1 g/dL (6.0-8.3)
[2023-10-15 11:35] LABS: ANISOCYTOSIS 2+; PLATELET ESTIMATE MARKEDLY DECREASED
[2023-10-15 11:36] LABS: PLATELET 42 x1000/uL (130-400)
[2023-10-15 14:37] LABS: HEMATOCRIT 28.8 % (42.0-52.0); HEMOGLOBIN 9.5 g/dL (14.0-18.0)
[2023-10-15 17:10] LABS: AMPHETAMINE SCREEN Negative ng/mL (Cutoff:50); BARBITURATE SCREEN Negative ug/mL (Cutoff:0.1); CANNABINOID SCREEN Negative ng/mL (Cutoff:5); OPIATES SCREEN Negative ng/mL (Cutoff:5); PHENCYCLIDINE SCREEN Negative ng/mL (Cutoff:8)
[2023-10-15 17:11] LABS: HEMATOCRIT 28.3 % (42.0-52.0); HEMOGLOBIN 9.5 g/dL (14.0-18.0); MEAN CORPUSCULAR HEMOGLOBIN 28.5 pg (28.0-32.0); MEAN CORPUSCULAR HGB CONC 33.4 g/dL (31.0-37.0); MEAN CORPUSCULAR VOLUME 85.4 fL (80.0-94.0); RED BLOOD CELL COUNT 3.32 mill/uL (4.7-6.1); RED CELL DISTRIBUTION WIDTH 22.4 % (11.6-14.6); WHITE BLOOD COUNT 4.4 x1000/uL (4.5-11.0)
[2023-10-15 17:13] LABS: PLATELET 30 x1000/uL (130-400)
[2023-10-15 23:23] LABS: HEMOGLOBIN 10.5 g/dL (14.0-18.0); MEAN CORPUSCULAR HEMOGLOBIN 28.7 pg (28.0-32.0); MEAN CORPUSCULAR HGB CONC 33.8 g/dL (31.0-37.0); RED BLOOD CELL COUNT 3.65 mill/uL (4.7-6.1); RED CELL DISTRIBUTION WIDTH 22.8 % (11.6-14.6); WHITE BLOOD COUNT 5.2 x1000/uL (4.5-11.0)
[2023-10-15 23:36] LABS: PLATELET 32 x1000/uL (130-400)
[2023-10-16] VITALS (26 sets, daily range): BP systolic 101–166; BP diastolic 46–95; PULSE 51–75; RESP 11–23; TEMP 35.5584–36.33624; O2SAT 81–100
[2023-10-16 05:37] LABS: HEMATOCRIT. 28.4 % (42.0-52.0); HEMOGLOBIN. 9.5 g/dL (14.0-18.0); MEAN CORPUSCULAR HEMOGLOBIN 28.6 pg (28.0-32.0); MEAN CORPUSCULAR HGB CONC 33.5 g/dL (31.0-37.0); MEAN CORPUSCULAR VOLUME 85.4 fL (80.0-94.0); MEAN PLATELET VOLUME 9.6 fl (7.4-10.4); RED BLOOD CELL COUNT 3.32 mill/uL (4.7-6.1); RED CELL DISTRIBUTION WIDTH 22.8 % (11.6-14.6)
[2023-10-16 05:43] LABS: CHLORIDE 108 mEq/L (98-107); POTASSIUM 4.4 mEq/L (3.5-5.1); SODIUM 142 mEq/L (136-145)
[2023-10-16 05:45] LABS: CARBON DIOXIDE 26 mEq/L (21-32)
[2023-10-16 05:50] LABS: CREATININE 4.5 mg/dL (0.6-1.3); GLUCOSE 83 mg/dL (70-105); UREA NITROGEN BLOOD 89 mg/dL (9-23)
[2023-10-16 05:51] LABS: ALANINE AMINOTRANSFERASE 39 IU/L (10-49)
[2023-10-16 05:52] LABS: ALBUMIN 2.4 g/dL (3.2-4.8); ASPARTATE AMINOTRANSFERASE 44 IU/L (<34); BILIRUBIN DIRECT 0.1 mg/dL (<=3.0); BILIRUBIN TOTAL 0.3 mg/dL (0.1-1.0); PROTEIN TOTAL 4.3 g/dL (6.0-8.3)
[2023-10-16 06:50] LABS: DIFFERENTIAL COMMENT 1
[2023-10-16 06:53] LABS: PLATELET 30 x1000/uL (130-400)
[2023-10-16] MEDS: BLOOD SUGAR DIAGNOSTIC STRIP TEST SCH (08:00)
[2023-10-16 09:38] LABS: ANISOCYTOSIS 2+; PLATELET ESTIMATE MARKEDLY DECREASED
[2023-10-16 13:10] LABS: PRO INSULIN 3.9 pmol/L (0.0-10.0)
[2023-10-16] MEDS: IPRATROPIUM/ALBUTEROL 0.5-3(2.5)MG/3ML NEB HHN PRN (23:21)
[2023-10-17] VITALS (12 sets, daily range): BP systolic 81–145; BP diastolic 51–74; PULSE 49–76; RESP 14–20; TEMP 35.5584–36.6696; O2SAT 95–100
[2023-10-17 06:08] LABS: HEMATOCRIT. 30.5 % (42.0-52.0); HEMOGLOBIN. 10.1 g/dL (14.0-18.0); MEAN CORPUSCULAR HEMOGLOBIN 28.4 pg (28.0-32.0); MEAN CORPUSCULAR HGB CONC 33.1 g/dL (31.0-37.0); MEAN CORPUSCULAR VOLUME 85.8 fL (80.0-94.0); RED BLOOD CELL COUNT 3.56 mill/uL (4.7-6.1); RED CELL DISTRIBUTION WIDTH 22.8 % (11.6-14.6); WHITE BLOOD COUNT 5.1 x1000/uL (4.5-11.0)
[2023-10-17 06:20] LABS: POTASSIUM 4.7 mEq/L (3.5-5.1)
[2023-10-17 06:22] LABS: CALCIUM 8.6 mg/dL (8.7-10.4)
[2023-10-17 06:25] LABS: CREATININE 4.4 mg/dL (0.6-1.3)
[2023-10-17 06:42] LABS: DIFFERENTIAL COMMENT 1
[2023-10-17 06:47] LABS: PLATELET 31 x1000/uL (130-400)
[2023-10-17 16:16] LABS: ANISOCYTOSIS 2+; PLATELET ESTIMATE MARKEDLY DECREASED
[2023-10-18] VITALS (9 sets, daily range): BP systolic 102–180; BP diastolic 50–75; PULSE 55–88; RESP 18–21; TEMP 35.78064–36.89184; O2SAT 96–100
[2023-10-18 07:16] LABS: CHLORIDE 104 mEq/L (98-107); POTASSIUM 4.3 mEq/L (3.5-5.1); SODIUM 139 mEq/L (136-145)
[2023-10-18 07:21] LABS: CALCIUM 8.3 mg/dL (8.7-10.4); CARBON DIOXIDE 26 mEq/L (21-32)
[2023-10-18 07:26] LABS: CREATININE 3.2 mg/dL (0.6-1.3); GLUCOSE 55 mg/dL (70-105); UREA NITROGEN BLOOD 59 mg/dL (9-23)
[2023-10-18 07:27] LABS: ALANINE AMINOTRANSFERASE 50 IU/L (10-49)
[2023-10-18 07:28] LABS: ALBUMIN 2.6 g/dL (3.2-4.8); AMMONIA 18 uMol/L (<32); ASPARTATE AMINOTRANSFERASE 65 IU/L (<34); BILIRUBIN DIRECT 0.1 mg/dL (<=3.0); PHOSPHORUS 5.8 mg/dL (2.5-4.9)
[2023-10-18 07:29] LABS: BILIRUBIN TOTAL 0.4 mg/dL (0.1-1.0); PROTEIN TOTAL 4.6 g/dL (6.0-8.3)
[2023-10-18 07:47] LABS: HEMATOCRIT. 29.9 % (42.0-52.0); HEMOGLOBIN. 9.9 g/dL (14.0-18.0); MEAN CORPUSCULAR HEMOGLOBIN 28.7 pg (28.0-32.0); MEAN CORPUSCULAR HGB CONC 33.2 g/dL (31.0-37.0); MEAN CORPUSCULAR VOLUME 86.4 fL (80.0-94.0); MEAN PLATELET VOLUME 9.2 fl (7.4-10.4); RED BLOOD CELL COUNT 3.46 mill/uL (4.7-6.1); RED CELL DISTRIBUTION WIDTH 22.8 % (11.6-14.6)
[2023-10-18 08:53] LABS: DIFFERENTIAL COMMENT 1
[2023-10-18 09:07] LABS: PLATELET 28 x1000/uL (130-400)
[2023-10-18] MEDS: MAGNESIUM 2 G PREMIX 50 ML IV NR (11:56)
[2023-10-18 12:34] LABS: ANISOCYTOSIS 2+; PLATELET ESTIMATE MARKEDLY DECREASED
[2023-10-18 13:07] LABS: OXYCODON UNCONJUGATED 13.4 ng/mL (.); OXYCODONE SCREEN ++POSITIVE++ ng/mL (Cutoff:5); OXYCODONES CONFIRMATION Positive (.); OXYMORPHONE UNCONJUGATED Negative (.)
[2023-10-18 22:07] LABS: DIFFERENTIAL COMMENT 1; HEMATOCRIT. 31.4 % (42.0-52.0); HEMOGLOBIN. 10.1 g/dL (14.0-18.0); MEAN CORPUSCULAR HEMOGLOBIN 28.7 pg (28.0-32.0); MEAN CORPUSCULAR HGB CONC 32.3 g/dL (31.0-37.0); MEAN CORPUSCULAR VOLUME 88.8 fL (80.0-94.0); MEAN PLATELET VOLUME 9.3 fl (7.4-10.4); PLATELET 65 x1000/uL (130-400); RED BLOOD CELL COUNT 3.54 mill/uL (4.7-6.1); RED CELL DISTRIBUTION WIDTH 22.8 % (11.6-14.6); WHITE BLOOD COUNT 9.4 x1000/uL (4.5-11.0)
[2023-10-18 22:57] LABS: ANISOCYTOSIS 2+; PLATELET ESTIMATE DECREASED
[2023-10-19] VITALS (17 sets, daily range): BP systolic 89–175; BP diastolic 55–69; PULSE 50–100; RESP 12–20; TEMP 35.5584–36.61404; O2SAT 95–99
[2023-10-19 05:37] LABS: POTASSIUM 4.2 mEq/L (3.5-5.1)
[2023-10-19 05:38] LABS: CALCIUM 7.7 mg/dL (8.7-10.4)
[2023-10-19 05:43] LABS: CREATININE 3.8 mg/dL (0.6-1.3)
[2023-10-19 05:45] LABS: BASOPHILS % 0.1 % (0.0-2.0); DIFFERENTIAL COMMENT 0; EOSINOPHILS % 0.6 % (0.0-5.0); HEMATOCRIT. 27.5 % (42.0-52.0); HEMOGLOBIN. 9.3 g/dL (14.0-18.0); LYMPHOCYTES % 7.3 % (20.0-50.0); MEAN CORPUSCULAR HGB CONC 33.9 g/dL (31.0-37.0); MEAN CORPUSCULAR VOLUME 85.4 fL (80.0-94.0); MEAN PLATELET VOLUME 9.7 fl (7.4-10.4); MONOCYTES % 7.5 % (2.0-8.0); NEUTROPHILS % 84.5 % (40.0-76.0); PLATELET 58 x1000/uL (130-400); RED BLOOD CELL COUNT 3.21 mill/uL (4.7-6.1); RED CELL DISTRIBUTION WIDTH 21.9 % (11.6-14.6); WHITE BLOOD COUNT 4.6 x1000/uL (4.5-11.0)
[2023-10-19] MEDS: FAMOTIDINE 20MG/2ML VIAL IV SCH (08:12)
[2023-10-19] MEDS ORDERED: HEPARIN 1000 UNITS/ML 10ML ONE (10:04)
[2023-10-19] MEDS ORDERED: LIDOCAINE HCL 1% 10 MG/ML 10ML VIAL ONE ×2 (10:04→15:02)
[2023-10-19 10:10] LABS: BASOPHILS % 0.2 % (0.0-2.0); EOSINOPHILS % 0.5 % (0.0-5.0); HEMATOCRIT. 28.3 % (42.0-52.0); HEMOGLOBIN. 9.1 g/dL (14.0-18.0); LYMPHOCYTES % 7.3 % (20.0-50.0); MEAN CORPUSCULAR HEMOGLOBIN 28.1 pg (28.0-32.0); MEAN CORPUSCULAR HGB CONC 32.3 g/dL (31.0-37.0); MEAN CORPUSCULAR VOLUME 87.1 fL (80.0-94.0); MEAN PLATELET VOLUME 8.4 fl (7.4-10.4); MONOCYTES % 8.6 % (2.0-8.0); NEUTROPHILS % 83.4 % (40.0-76.0); PLATELET 90 x1000/uL (130-400); RED BLOOD CELL COUNT 3.25 mill/uL (4.7-6.1); RED CELL DISTRIBUTION WIDTH 22.6 % (11.6-14.6); WHITE BLOOD COUNT 4.8 x1000/uL (4.5-11.0)
[2023-10-19 10:11] LABS: DIFFERENTIAL COMMENT 1
[2023-10-19 10:13] LABS: ADD RBC MORPHOLOGY NO
[2023-10-19] MEDS ORDERED: CEFAZOLIN 1000MG PREMIX 50 ML IV ONE (10:23)
[2023-10-19] MEDS ORDERED: FENTANYL CITRATE/PF 50MCG/ML 2ML VIAL ONE (10:23)
[2023-10-19] MEDS: FENTANYL CITRATE/PF 50MCG/ML 2ML VIAL IV ONE (10:25)
[2023-10-19] MEDS: CEFAZOLIN 1000MG PREMIX 50 ML IV ONE (10:30)
[2023-10-19] MEDS ORDERED: CEFAZOLIN 1000MG PREMIX 50 ML IV NR (10:45)
[2023-10-19] MEDS ORDERED: FOS500 PO (12:14)
[2023-10-19] MEDS ORDERED: DESMOPRESSIN ACETATE 4MCG/ML AMP IV ONE (13:15)
[2023-10-20] VITALS (13 sets, daily range): BP systolic 89–157; BP diastolic 52–111; PULSE 54–91; RESP 18–20; TEMP 35.66952–37.00296; O2SAT 94–100
[2023-10-20] MEDS: LEVOTHYROXINE SODIUM 25MCG TABLET PO SCH (06:21)
[2023-10-20 07:06] LABS: THYROID STIMULATING HORMONE 2.04 uIU/mL (0.55-4.78)
[2023-10-20] MEDS: DESMOPRESSIN ACETATE 16 MCG in SODIUM CHLORIDE 0.9% 50 ML IV NR (07:43)
[2023-10-20 08:18] LABS: BASOPHILS % 1.6 % (0.0-2.0); EOSINOPHILS % 0.3 % (0.0-5.0); HEMATOCRIT. 28.8 % (42.0-52.0); HEMOGLOBIN. 9.3 g/dL (14.0-18.0); LYMPHOCYTES % 7.7 % (20.0-50.0); MEAN CORPUSCULAR HEMOGLOBIN 28.3 pg (28.0-32.0); MEAN CORPUSCULAR HGB CONC 32.2 g/dL (31.0-37.0); MEAN CORPUSCULAR VOLUME 88.1 fL (80.0-94.0); MEAN PLATELET VOLUME 9.7 fl (7.4-10.4); NEUTROPHILS % 84.4 % (40.0-76.0); PLATELET 78 x1000/uL (130-400); RED BLOOD CELL COUNT 3.27 mill/uL (4.7-6.1); RED CELL DISTRIBUTION WIDTH 22.1 % (11.6-14.6); WHITE BLOOD COUNT 6.4 x1000/uL (4.5-11.0)
[2023-10-20 08:19] LABS: CHLORIDE 105 mEq/L (98-107); POTASSIUM 5.4 mEq/L (3.5-5.1); SODIUM 136 mEq/L (136-145)
[2023-10-20 08:20] LABS: CARBON DIOXIDE 22 mEq/L (21-32); DIFFERENTIAL COMMENT 1
[2023-10-20 08:21] LABS: ADD RBC MORPHOLOGY NO
[2023-10-21] VITALS: BP 157/62; PULSE 72; RESP 19; TEMP 36.28068; O2SAT 95
[2023-10-21 04:00] VITALS: BP 130/79; PULSE 74; RESP 18; TEMP 36.44736; O2SAT 97
[2023-10-21 04:12] LABS: INSULIN AUTOANTIBODIES < 5.0 uU/mL (.)
[2023-10-21 07:44] VITALS: BP 109/47; PULSE 59; RESP 19; TEMP 36.22512; O2SAT 99
[2023-10-21 07:59] LABS: POTASSIUM 3.8 mEq/L (3.5-5.1)
[2023-10-21 08:05] LABS: CREATININE 2.7 mg/dL (0.6-1.3)
[2023-10-21 08:07] LABS: BASOPHILS % 0.4 % (0.0-2.0); EOSINOPHILS % 0.3 % (0.0-5.0); HEMATOCRIT. 23.4 % (42.0-52.0); HEMOGLOBIN. 7.7 g/dL (14.0-18.0); LYMPHOCYTES % 8.2 % (20.0-50.0); MEAN CORPUSCULAR HEMOGLOBIN 28.8 pg (28.0-32.0); MEAN CORPUSCULAR VOLUME 87.2 fL (80.0-94.0); MEAN PLATELET VOLUME 9.5 fl (7.4-10.4); MONOCYTES % 5.4 % (2.0-8.0); NEUTROPHILS % 85.7 % (40.0-76.0); PLATELET 72 x1000/uL (130-400); RED BLOOD CELL COUNT 2.69 mill/uL (4.7-6.1); RED CELL DISTRIBUTION WIDTH 22.9 % (11.6-14.6); WHITE BLOOD COUNT 4.3 x1000/uL (4.5-11.0)
[2023-10-21 08:21] LABS: DIFFERENTIAL COMMENT 1
[2023-10-21 11:53] VITALS: BP 168/63; PULSE 61; RESP 19; TEMP 36.33624; O2SAT 96
[2023-10-21 13:52] VITALS: BP 168/63; PULSE 61; TEMP 98.5; O2SAT 96
[2023-10-21] MEDS ORDERED: ATROPINE SULFATE 1MG/10ML SYR IV PRN (15:37)
[2023-10-21 16:15] VITALS: BP 174/66; PULSE 60; RESP 19; TEMP 36.28068; O2SAT 100
[2023-10-24 13:10] LABS: 7-AMINOCLONAZEPAM CONFIRM Negative (.); ALPRAZOLAM CONFIRM Negative (.); BENZODIAZEPINE SCREEN ++POSITIVE++ ng/mL (Cutoff:20); BENZOYLECGONINE >1500 ng/mL (.); CHLORDIAZEPOXIDE CONFIRM Negative (.); CLONAZEPAM CONFIRM Negative (.); COCAINE Negative (.); DESALKYLFLURAZEPAM CONFIRM Negative (.); DESMETHYLCHLORDIAZEPOXIDE Negative (.); DESMETHYLDIAZEPAM CONFIRM Negative (.); DIAZEPAM CONFIRM Negative (.); FLURAZEPAM CONFIRM Negative (.); LORAZEPAM CONFIRM 22 ng/mL (.); MIDAZOLAM CONFIRM Negative (.); OXAZEPAM CONFIRM Negative (.); TEMAZEPAM CONFIRM Negative (.); TRIAZOLAM CONFIRM Negative (.)
== END 2023-10-21 17:02 | disposition home or self-care (01) | DRG 871 ==
LOC: ER 06:41 → MICUSO 10:13 → EDBEDREQ 10:15 → EDBEDREQTM 10:15 → 8WST 10-16 11:11
PROVIDERS: ADMIT Hospitalist; ATTEND Hospitalist
PROC: 5A1945Z Respiratory Ventilation, 24-96 Consecutive Hours (ICD-10-PCS; principal; 2023-10-11)
PROC: 0BH17EZ Insertion of Endotracheal Airway into Trachea, Via Natural or Artificial Opening (ICD-10-PCS; 2023-10-11)
PROC: 30233R1 Transfusion of Nonautologous Platelets into Peripheral Vein, Percutaneous Approach (ICD-10-PCS; 2023-10-12)
PROC: 0W993ZZ Drainage of Right Pleural Cavity, Percutaneous Approach (ICD-10-PCS; 2023-10-12)
PROC: 5A1D70Z Performance of Urinary Filtration, Intermittent, Less than 6 Hours Per Day (ICD-10-PCS; 2023-10-12)
PROC: 02HV33Z Insertion of Infusion Device into Superior Vena Cava, Percutaneous Approach (ICD-10-PCS; 2023-10-12)
PROC: 5A1D70Z Performance of Urinary Filtration, Intermittent, Less than 6 Hours Per Day (ICD-10-PCS; 2023-10-13)
PROC: 30233N1 Transfusion of Nonautologous Red Blood Cells into Peripheral Vein, Percutaneous Approach (ICD-10-PCS; 2023-10-14)
PROC: 5A1D70Z Performance of Urinary Filtration, Intermittent, Less than 6 Hours Per Day (ICD-10-PCS; 2023-10-15)
PROC: 5A1D70Z Performance of Urinary Filtration, Intermittent, Less than 6 Hours Per Day (ICD-10-PCS; 2023-10-17)
PROC: 0JH63XZ Insertion of Tunneled Vascular Access Device into Chest Subcutaneous Tissue and Fascia, Percutaneous Approach (ICD-10-PCS; 2023-10-19)
PROC: 02H633Z Insertion of Infusion Device into Right Atrium, Percutaneous Approach (ICD-10-PCS; 2023-10-19)
PROC: B518ZZA Fluoroscopy of Superior Vena Cava, Guidance (ICD-10-PCS; 2023-10-19)
PROC: 5A1D70Z Performance of Urinary Filtration, Intermittent, Less than 6 Hours Per Day (ICD-10-PCS; 2023-10-20)
DX: A41.9 Sepsis, unspecified organism (principal); G92.8 Other toxic encephalopathy; J96.21 Acute and chronic respiratory failure with hypoxia; J96.22 Acute and chronic respiratory failure with hypercapnia; N18.6 End stage renal disease; I21.A1 Myocardial infarction type 2; N17.0 Acute kidney failure with tubular necrosis; R65.21 Severe sepsis with septic shock; J44.1 Chronic obstructive pulmonary disease with (acute) exacerbation; J45.901 Unspecified asthma with (acute) exacerbation; C34.90 Malignant neoplasm of unspecified part of unspecified bronchus or lung; E87.29 Other acidosis; I13.2 Hypertensive heart and chronic kidney disease with heart failure and with stage 5 chronic kidney disease, or end stage renal disease; Z68.1 Body mass index [BMI] 19.9 or less, adult; D61.818 Other pancytopenia; D68.9 Coagulation defect, unspecified; E46 Unspecified protein-calorie malnutrition; K92.1 Melena; J90 Pleural effusion, not elsewhere classified; I50.32 Chronic diastolic (congestive) heart failure; E03.9 Hypothyroidism, unspecified; E83.51 Hypocalcemia; E87.5 Hyperkalemia; Z99.2 Dependence on renal dialysis; M41.9 Scoliosis, unspecified; B19.20 Unspecified viral hepatitis C without hepatic coma; E11.22 Type 2 diabetes mellitus with diabetic chronic kidney disease; E83.39 Other disorders of phosphorus metabolism; E11.649 Type 2 diabetes mellitus with hypoglycemia without coma; E83.42 Hypomagnesemia; F14.10 Cocaine abuse, uncomplicated; F17.210 Nicotine dependence, cigarettes, uncomplicated; G40.909 Epilepsy, unspecified, not intractable, without status epilepticus; Z90.5 Acquired absence of kidney; K74.60 Unspecified cirrhosis of liver; F41.9 Anxiety disorder, unspecified; F19.10 Other psychoactive substance abuse, uncomplicated; N40.1 Benign prostatic hyperplasia with lower urinary tract symptoms; L89.90 Pressure ulcer of unspecified site, unspecified stage; R13.12 Dysphagia, oropharyngeal phase; S81.812A Laceration without foreign body, left lower leg, initial encounter; X58.XXXA Exposure to other specified factors, initial encounter; Y93.89 Activity, other specified; Y99.8 Other external cause status; T38.3X5A Adverse effect of insulin and oral hypoglycemic [antidiabetic] drugs, initial encounter; Y92.89 Other specified places as the place of occurrence of the external cause; Z85.118 Personal history of other malignant neoplasm of bronchus and lung; Z74.01 Bed confinement status; Z79.899 Other long term (current) drug therapy; Z91.158 Patient's noncompliance with renal dialysis for other reason
CPT/HCPCS: 12001; 31500; 32555; 36415; 36556; 36558; 36589; 36600; 71045; 74176; 76700; 76937; 77001; 80048; 80051; 80053; 80076; 80202; 80305; 80307; 81003; 82024; 82140; 82270; 82306; 82330; 82375; 82533; 82607; 82728; 82746; 82805; 82962; 83525; 83540; 83550; 83605; 83735; 83880; 83970; 84100; 84145; 84206; 84439; 84443; 84481; 84484; 84681; 85014; 85018; 85025; 85027; 85044; 85049; 85384; 86337; 86376; 86705; 86706; 86709; 86850; 86900; 86920; 87070; 87340; 90935; 93005; 93306; 93970; 94003; 94640; 97162; 97167; 99152; 99153; 99291; A6261; C1752; C1769; C1893; J0610; J0690; J0692; J1644; J1815; J1940; J2060; J2470; J2543; J2597; J3010; J3370; J3475; J3490; J7050; P9016; P9034; G0500